=== PATIENT | female | born 1950 | race Caucasian/White ===

== ENCOUNTER → 2016-03-26 | Outpatient (CLI) | payer BC ==
[~2016-03-26] MED LIST: BIOFREEZE 0.2%-1 GE1 TP; EVAMIST1.53 MG/Ac TD; MULTI-DAY1 TAB PO; PROVERA 2.5MG2.5 MG PO; VITAMIN E100 I3 PO
== END ==
LOC: MC.RAD 13:03
DX: Z12.31 Encounter for screening mammogram for malignant neoplasm of breast (principal)